=== PATIENT | female | born 1985 | race Caucasian/White ===

== ENCOUNTER 2017-02-06 09:10 | Emergency (ER) | payer MEDICAID ==
[2017-02-06] MEDS ORDERED: IBUPROFEN 600 MG TAB PO STA (09:45)
[2017-02-06] MEDS ORDERED: ACETAMINOPHEN TAB 500 MG TAB PO STA (09:46)
--- NOTE | 2017-02-06 09:49 | ED ---
General Adult HPI - General Chief complaint: Upper Respiratory Infection Stated complaint: chills Time Seen by Provider: 02/06/17 09:40 Source: patient, RN notes reviewed Mode of arrival: ambulatory Limitations: no limitations - History of Present Illness Initial comments: 31-year-old female presents to the emergency department with a chief complaint of cough cold runny nose like symptoms. Patient has been having a cough cold runny nose for the past few days. Patient does admit to fevers. Patient states that she just feels sore and achy. Patient denies any nausea or vomiting with this. She was exposed to influenza. Patient states she was concerned due to the symptoms that she thought that they should be seen. Patient denies any recent shortness of breath, chest pain, back pain, abdominal pain, nausea vomiting, numbness or tingling, dysuria or hematuria, constipation or diarrhea, headaches or visual changes, or any other current symptoms. - Related Data Previous Rx's Medication Instructions Recorded Oseltamivir [Tamiflu] 75 mg PO Q12HR #10 cap 02/06/17 Allergies Allergy/AdvReac Type Severity Reaction Status Date / Time No Known Allergies Allergy Verified 02/06/17 09:19 Review of Systems ROS Statement: Those systems with pertinent positive or pertinent negative responses have been documented in the HPI. ROS Other: All systems not noted in ROS Statement are negative. Past Medical History Past Medical History: No Reported History History of Any Multi-Drug Resistant Organisms: None Reported Past Surgical History: Tonsillectomy Past Psychological History: ADD/ADHD Smoking Status: Never smoker Past Alcohol Use History: Occasional Past Drug Use History: None Reported General Exam - General Exam Comments Initial Comments: General exam: Alert, active, comfortable in no apparent distress Head: Normocephalic Eyes: Normal reaction of pupils, equal size, normal range of extraocular motion Ears: normal external ear canals, pink tympanic membranes with normal cone of light on the right, patient does have mild erythema to the left tympanic membrane Nose: clear with pink turbinates Throat: no erythema or exudates with normal sized tonsils Neck: no masses, no nuchal rigidity Chest: no chest wall deformity Lungs: equal air entry with no crackles or wheeze CVS: S1 and S2 normal with no audible mumurs, regular rhythm Abdomen: no hepatosplenomegaly, normal bowel sounds, no guarding or rigidity Spine: no scoliosis or deformity Skin: no rashes Neurological: No focal deficits, tone is normal in all 4 extremities Limitations: no limitations Course Vital Signs 02/06/17 09:17 Temperature 99.1 F Pulse Rate 84 Respiratory 20 Rate Blood Pressure 100/63 O2 Sat by Pulse 98 Oximetry Medical Decision Making - Medical Decision Making 31-year-old female presents to the emergency department with a chief complaint of cough and fever. At this time patient informed to come back positive. At this time we discussed that we will start the patient on Tamiflu. We discussed temporizing follow-up. We discussed all the patient's questions. We discussed the medication. Patient stated that she understood all questions answered. She will be discharged home. - Lab Data Lab Results 02/06/17 Range/Units 10:08 Influenza Type A RNA Detected H (Not Detectd) Influenza Type B (PCR) Not Detected (Not Detectd) - Radiology Data Radiology results: report reviewed, image reviewed Disposition Clinical Impression: Influenza A Disposition: HOME SELF-CARE Condition: Stable Instructions: Influenza (ED) Additional Instructions: Please use medication as discussed. Please follow up with family doctor if symptoms have not improved over the next two days. Please return to the emergency room if your symptoms increase or worsen or for any other concerns. Prescriptions: Oseltamivir [Tamiflu] 75 mg PO Q12HR #10 cap Referrals: Maurilio Dickerson MD [Primary Care Provider] - 1-2 days Time of Disposition: 11:04
--- NOTE | 2017-02-06 10:17 | XR ---
EXAMINATION TYPE: XR chest 2V DATE OF EXAM: 02/06/2017 10:13 AM COMPARISON: None HISTORY: 31-year-old female with cough and congestion for 3 days TECHNIQUE: PA and lateral views FINDINGS: The cardiomediastinal silhouette, aorta, and pulmonary vasculature are within normal limits. Lungs an d pleural spaces are clear. IMPRESSION: No acute cardiopulmonary process.
[2017-02-06 11:33] VITALS: BP 107/53; PULSE 87; RESP 16; TEMP 99.4
== END 2017-02-06 11:47 | disposition home or self-care (01) ==
LOC: EC 09:10
DX: J10.1 Influenza due to other identified influenza virus with other respiratory manifestations (principal); Z90.89 Acquired absence of other organs
CPT/HCPCS: 71020; 87502; 99283

== ENCOUNTER → 2017-06-09 | Outpatient (CLI) | payer MEDICAID ==
[2017-06-09 18:46] LABS: Basophils # (A) 0.1 k/uL (0-0.2); Basophils % (A) 1 %; CH 30.4; CHCM 32.9; Eosinophils # (A) 0.1 k/uL (0-0.7); Eosinophils % (A) 2 %; HCT 46.7 % (34.0-46.0); HDW 2.37; HGB 15.1 gm/dL (11.4-16.0); Luc # (Auto) 0.15; Luc % (Auto) 2; Lymphocytes # (A) 3.2 k/uL (1.0-4.8); Lymphocytes % (A) 40 %; MCHC 32.4 g/dL (31.0-37.0); MCV 92.6 fL (80.0-100.0); Mean Platelet Volume 8.2; Monocytes # (A) 0.4 k/uL (0-1.0); Monocytes % (A) 5 %; Neutrophils % (A) 50 %; RBC 5.04 m/uL (3.80-5.40); WBC 7.9 k/uL (3.8-10.6); WBC (Perox) 7.86
[2017-06-09 18:59] LABS: ALT 26 U/L (9-52); AST 24 U/L (14-36); Alkaline Phosphatase 57 U/L (38-126); Anion Gap 11 mmol/L; Blood Urea Nitrogen 14 mg/dL (7-17); Calcium 10.1 mg/dL (8.4-10.2); Carbon Dioxide 25 mmol/L (22-30); Chloride 104 mmol/L (98-107); Cholesterol 236 mg/dL (<200); Glucose 76 mg/dL (74-99); HDL Cholesterol 98 mg/dL (40-60); Magnesium 1.8 mg/dL (1.6-2.3); Non-African American GFR(MDRD) >60 (>60 ml/min/1.73 sqM); Potassium 4.5 mmol/L (3.5-5.1); Sodium 140 mmol/L (137-145); Total Bilirubin 0.9 mg/dL (0.2-1.3); Total Protein 7.3 g/dL (6.3-8.2)
== END ==
LOC: MMGSC 07:55
PROVIDERS: ATTEND Family Medicine
DX: E55.9 Vitamin D deficiency, unspecified (principal); E78.2 Mixed hyperlipidemia; F41.1 Generalized anxiety disorder; R53.83 Other fatigue
CPT/HCPCS: 36415; 80053; 80061; 82306; 83735; 84439; 84443; 85025

== ENCOUNTER → 2019-04-13 | Outpatient (CLI) | payer MEDICAID ==
--- NOTE | 2019-04-15 21:36 | US ---
EXAMINATION TYPE: Transabdominal DATE OF EXAM: 04/13/2019 3:54 PM COMPARISON: NONE CLINICAL HISTORY: Z36 confirm dates, EXAM PERFORMED: Transabdominal (TA) EXAM MEASUREMENTS: GESTATIONAL AGE / DATING Physician Established: (12 weeks/2 days) EDC: 10/24/2019 Dates by LMP: (12 weeks/2 days) EDC: 10/24/2019 Dates by First Scan: No previous/ this is first scan Dates by Current Scan for: (12 weeks/0 days) EDC: 10/26/2019 MATERNAL ANATOMY Uterus: 12.5 x 9.9 x 6.7cm Right Ovary: 2.8 x 1.8 x 1.7cm Left Ovary: 2.7 x 2.6 x 1.5cm Post CDS / Adnexa: wnl Presence of free fluid: no Presence of corpus luteal cyst: in right ovary = 1.6 x 1.4 x 1.5cm Presence of subchorionic bleed: no GESTATION / SURVEY CRL: 5.5cm (12 weeks/0 days) Yolk Sac (normal less than 6mm): 5.3mm Heart Rate: 153 bpm Rhythm: Normal IUP: single Nuchal Translucency 10-14wks (normal less than 3mm): 0.7mm Date of LMP: 01/17/2019 Beta HcG (if available): NA Single, live IUP,12 weeks/0 days, EDC: 10/26/2019, [id number] Single live intrauterine gestation is confirmed as gestational sac, yolk sac, and pole are iden tified. No free fluid in pelvic cul-de-sac. Both ovaries are seen. Within the right ovary there is a rim hypervascular 1.4 cm hypoechoic lesion c onsistent with corpus luteal cyst. No suspicious extraovarian adnexal masses are present. IMPRESSION: Single live intrauterine gestation is confirmed, mean crown-rump length is 5.5 cm corresponding to a 12 week 0 day old fetus.
== END | disposition home or self-care (01) ==
LOC: RADUSWWP 15:31
PROVIDERS: ATTEND Obstetrics & Gynecology
DX: Z36.9 Encounter for antenatal screening, unspecified (principal); Z3A.12 12 weeks gestation of pregnancy
CPT/HCPCS: 76801; 76813

== ENCOUNTER → 2019-04-19 | Outpatient (CLI) | payer MEDICAID ==
[2019-04-19 12:10] LABS: HCT 40.2 % (34.0-46.0); HGB 13.5 gm/dL (11.4-16.0); MCH 29.3 pg (25.0-35.0); MCHC 33.7 g/dL (31.0-37.0); MCV 87.2 fL (80.0-100.0); Platelet Count 312 k/uL (150-450); RBC 4.61 m/uL (3.80-5.40); RDW 13.9 % (11.5-15.5); WBC 11.4 k/uL (3.8-10.6)
[2019-04-19 18:33] LABS: African American GFR (CKD) 148.4 (60.0-200.0)
== END | disposition home or self-care (01) ==
LOC: LABWHC1 11:27
PROVIDERS: ATTEND Obstetrics & Gynecology
DX: Z34.01 Encounter for supervision of normal first pregnancy, first trimester (principal)
CPT/HCPCS: 36415; 82565; 82947; 85027; 86762; 86780; 86850; 86900; 86901; 87340

== ENCOUNTER → 2019-05-30 | Outpatient (CLI) | payer MEDICAID ==
--- NOTE | 2019-05-31 07:32 | US ---
EXAMINATION TYPE: US OB anatomy transabd DATE OF EXAM: 05/30/2019 COMPARISON: NONE HISTORY: Large for dates 2nd trimester O36.62X0 anatomy. TECHNIQUE: Transabdominal (TA) EXAM MEASUREMENTS: GESTATIONAL AGE / DATING Physician Established: (18 weeks/6 days) EDC: 10/24/2019 Dates by LMP: (18 weeks/6 days) EDC: 10/24/2019 Dates by First Scan: (12 weeks/0 days) EDC: 10/26/2019 Dates by Current Scan for: (19 weeks/4 days) 10/20/2019 EDC: SURVEY IUP: Single PLACENTA: Anterior PREVIA: Low Lying with the placenta terminating approximately 1.8 cm from the internal cervical os. NOEL: 15.30 cm Normal CERVICAL LENGTH (transabdominal: norm > 3.0cm): 4.1 cm BIOMETRY PRESENTATION: Variable LIE: Longitudinal BPD: 4.5 cm 19 weeks / 5 days HC: 16.6 cm 19 weeks / 3 days AC: 13.9 cm 19 weeks / 3 days FL: 2.6 cm 18 weeks / 0 days ESTIMATED WEIGHT IN GRAMS: 252 grams ESTIMATED WEIGHT IN LBS/OZ: 0 lbs. 9 oz. WEIGHT PERCENTAGE BASED ON ESTABLISHED DATE: 28 % HC/AC: 1.16cm Normal FL/AC: 19% Normal HEART RATE: 143 bpm RHYTHM: Normal ANATOMY SEEN (within normal limits): * Lateral Vent (< 1 cm) .7 cm * Cisterna Magna (< 1.1 cm) 0.4 cm * Nuchal Fold (< 0.6 cm) .4 cm * Cerebellum (varies with age) 1.9 cm Choroid Plexus (bilateral) Midline Falx Cavus Septi Pellucidi Four Chamber Heart Outflow tracts: LVOT/RVOT Stomach Situs Nose / Lips Diaphragm Kidneys (bilateral) Bladder Cord Insert Three Vessel Cord Longitudinal Spine Transverse Spine Arms (bilateral) Legs (bilateral) ANATOMY SEEN (does not appear within normal limits): ANATOMY NOT SEEN: Spine down limited images seen T-spine and C-spine. IMPRESSION: 1. Single live intrauterine with a sonographic age of 19 weeks and 4 days and estimated abdullahi e of delivery of 10/20/2019, overall concordant with menstrual age. Currently the placenta is low-lyi ng. Surveillance is recommended to ensure elevation of the placenta. 2. Somewhat limited images of the spine. 3. Weight percentage based on established dates of 28% in this large for dates gestation.
== END ==
LOC: RADUSWWP 14:48
PROVIDERS: ATTEND Obstetrics & Gynecology
DX: O36.62X0 Maternal care for excessive fetal growth, second trimester, not applicable or unspecified (principal); Z3A.19 19 weeks gestation of pregnancy
CPT/HCPCS: 76811

== ENCOUNTER → 2019-06-11 | Outpatient (CLI) | payer MEDICAID ==
--- NOTE | 2019-06-12 08:42 | US ---
EXAMINATION TYPE: US OB Call Back DATE OF EXAM: 06/11/2019 COMPARISON: NONE CLINICAL HISTORY: Large for dates 2nd trimester O36.62X0. GESTATIONAL AGE / DATING Dates by Initial Survey Scan: (19 weeks/4 days) EDC: 10/20/2019 HEART RATE: 135 bpm RHYTHM: Normal ANATOMY SEEN (second anatomic survey look): Longitudinal Spine: wnl Transverse Spine: wnl IMPRESSION: Single live intrauterine embryo density has a current sonographic age of 19 weeks and 4 days and wilder mated date of delivery of 10/20/2019 with heart rate of 135 bpm. The patient was brought back for bet ter visualization of the spine, which appears overall unremarkable.
== END | disposition home or self-care (01) ==
LOC: RADUSWWP 16:08
PROVIDERS: ATTEND Obstetrics & Gynecology
DX: Z53.9 Procedure and treatment not carried out, unspecified reason (principal)

== ENCOUNTER → 2019-07-14 | Outpatient (CLI) | payer MEDICAID ==
[2019-07-14 11:51] LABS: HGB 12.2 gm/dL (11.4-16.0); MCH 30.3 pg (25.0-35.0); MCV 91.7 fL (80.0-100.0); Mean Platelet Volume 7.2; Platelet Count 271 k/uL (150-450); RBC 4.04 m/uL (3.80-5.40); RDW 13.9 % (11.5-15.5)
== END | disposition home or self-care (01) ==
LOC: LABWHC1 09:54
PROVIDERS: ATTEND Obstetrics & Gynecology
DX: Z34.02 Encounter for supervision of normal first pregnancy, second trimester (principal)
CPT/HCPCS: 36415; 82950; 85027

== ENCOUNTER → 2019-08-07 | Outpatient (CLI) | payer MEDICAID ==
--- NOTE | 2019-08-08 08:09 | US ---
EXAMINATION TYPE: US OB >= 14 wk fetus DATE OF EXAM: 08/07/2019 COMPARISON: 06/11/2019 CLINICAL HISTORY: O44.42 LOW LYING PLACENTA Hx Low lying placenta TECHNIQUE: Transabdominal (TA) GESTATIONAL AGE / DATING Physician Established: (28 weeks/6 days) EDC: 10/24/2019 Dates by Current Scan: (28 weeks/5 days) EDC: 10/25/2019 SURVEY IUP: Single PLACENTA: Anterior PREVIA: No Previa NOEL: 16.8 cm Normal CERVICAL LENGTH (transabdominal: norm > 3.0cm): 3.8 cm BIOMETRY PRESENTATION: Vertex BPD: 7.1 cm 28 weeks / 4 days HC: 27.1 cm 29 weeks / 4 days AC: 27.1 cm 28 weeks / 3 days FL: 5.2 cm 27 weeks / 6 days ESTIMATED WEIGHT IN GRAMS: 1203 grams ESTIMATED WEIGHT IN LBS/OZ: 2 lbs. 10 oz. HC/AC: 1.1 Normal FL/AC: 22% Normal HEART RATE: 142 bpm RHYTHM: Normal Single live IUP measuring 28 weeks 5 days IMPRESSION: Single live intrauterine has a sonographic age of 28 weeks and 5 days and estimated date of delivery of 10/25/2019, concordant with physician established dates. The distal tip of the placenta terminates approximately 5.0 cm from the internal cervical os.
== END | disposition home or self-care (01) ==
LOC: RADUSWWP 16:03
PROVIDERS: ATTEND Obstetrics & Gynecology
DX: O44.42 Low lying placenta NOS or without hemorrhage, second trimester (principal); Z3A.28 28 weeks gestation of pregnancy
CPT/HCPCS: 36415; 76805; 86850

== ENCOUNTER → 2019-09-21 | Outpatient (CLI) | payer MEDICAID ==
--- NOTE | 2019-09-23 14:03 | US ---
EXAMINATION TYPE: US OB >= 14 wk fetus DATE OF EXAM: 09/21/2019 COMPARISON: 08/07/2019 CLINICAL HISTORY: 34-year-old female O36.63XO Large for dates; ; assess presentation per pa tient TECHNIQUE: Transvaginal (TV) FINDINGS: GESTATIONAL AGE / DATING Physician Established: (35 weeks/2 days) EDC: 10/24/2019 Dates by LMP: (35 weeks/2 days) EDC: 10/24/2019 Dates by First Scan: (35 weeks/1 day) EDC: 10/25/2019 Dates by Current Scan: (34 weeks/3 days +/- 2 weeks 3 days) EDC: 10/30/2019 (5 days less growth than expected as compared to 08/07/2019) Beta HCG (if available): NA SURVEY IUP: Single PLACENTA: Anterior PREVIA: No Previa NOEL: 15.2 cm Normal CERVICAL LENGTH (transabdominal: norm > 3.0cm): 3.6 cm BIOMETRY PRESENTATION: Vertex LIE: Longitudinal BPD: 8.3 cm 33 weeks / 4 days HC: 31.1 cm 34 weeks / 6 days AC: 31.0 cm 35 weeks / 0 days FL: 6.6 cm 34 weeks / 0 days ESTIMATED WEIGHT IN GRAMS: 2453.0 grams ESTIMATED WEIGHT IN LBS/OZ: 5 lbs. 7 oz. WEIGHT PERCENTAGE BASED ON ESTABLISHED DATES: 27.2% HC/AC: 1.00 Normal FL/AC: 21.26 Normal HEART RATE: 129 bpm RHYTHM: Normal QUALITY ENGINEER NOTES: Single, live IUP, 34 weeks/3 days, EDC: 10/30/2019 , [id number]. IMPRESSION: 1. Single live intrauterine with estimated/established gestational age of 35 weeks 2 days b y LMP. Current ultrasound biometry is smaller but concordant (34 weeks 3 days) placing the child at t he 27th percentile for weight. 2. Note 5 days less growth than expected from 08/07/2019. Follow-up as indicated. 3. Cephalic presentation. Anterior placenta without previa. 4. Note that the anatomy was not assessed on this study.
== END | disposition home or self-care (01) ==
LOC: RADUSWWP 16:04
PROVIDERS: ATTEND Obstetrics & Gynecology
DX: O36.63X0 Maternal care for excessive fetal growth, third trimester, not applicable or unspecified (principal); Z3A.35 35 weeks gestation of pregnancy
CPT/HCPCS: 76805

== ENCOUNTER 2019-10-24 13:07 | Inpatient (IN) | payer MEDICAID ==
[2019-10-29] MEDS ORDERED: LIDOCAINE 0.5% (PF) 5 MG/ML (50 ML SDV) SQ PRN (14:01)
[2019-10-29] MEDS ORDERED: TERBUTALINE 1 MG/ML VIAL SQ PRN (14:01)
[2019-10-29] MEDS ORDERED: OXYTOCIN 10 UNIT/ML 1 ML VIAL IM PRN (14:01)
[2019-10-29] MEDS ORDERED: CARBOPROST TROMETHAMINE 250 MCG/ML 1 ML AMP IM PRN (14:01)
[2019-10-29] MEDS ORDERED: METHYLERGONOVINE 0.2 MG/ML 1 ML AMP IM PRN (14:01)
[2019-10-29] MEDS ORDERED: AMPICILLIN 2,000 MG in SODIUM CHLORIDE 0.9% 100 ML IVPB STA (14:01)
[2019-10-29] MEDS: LACTATED RINGERS 1,000 ML IV SCH ×2 (14:12→16:09)
[2019-10-29] MEDS ORDERED: OXYTOCIN 30 UNITS/500 ML NS 30 UNIT in SALINE 1 500ML.BAG IV SCH (14:15)
[2019-10-29 14:17] LABS: Basophils # (A) 0.1 k/uL (0-0.2); Basophils % (A) 0 %; Eosinophils # (A) 0.1 k/uL (0-0.7); Eosinophils % (A) 1 %; HCT 40.4 % (34.0-46.0); HGB 13.2 gm/dL (11.4-16.0); Lymphocytes # (A) 2.6 k/uL (1.0-4.8); Lymphocytes % (A) 20 %; MCH 29.3 pg (25.0-35.0); MCHC 32.6 g/dL (31.0-37.0); MCV 89.9 fL (80.0-100.0); Mean Platelet Volume 9.9; Monocytes # (A) 0.6 k/uL (0-1.0); Monocytes % (A) 4 %; Neutrophils # (A) 9.5 k/uL (1.3-7.7); Neutrophils % (A) 73 %; Platelet Count 186 k/uL (150-450); RDW 14.8 % (11.5-15.5)
[2019-10-29] MEDS ORDERED: AMPICILLIN 1,000 MG in SODIUM CHLORIDE 0.9% 50 ML IVPB SCH (18:00)
[2019-10-29] MEDS ORDERED: BUTORPHANOL 1 MG/ML 1 ML VIAL IV PRN (19:02)
--- NOTE | 2019-10-29 20:02 | P.HPOB ---
History of Present Illness H&P Date: 10/29/19 Chief Complaint: Leaking of fluid. This patient is a pleasant 34-year-old 1 para 0 female estimated date of confinement 10/24/2019 estimated gestational age 40-5/7 weeks' who presented to labor and delivery with complaints of gush of fluid at approximately 120 this a fternoon. Patient's care has been uncomplicated. Review of Systems Gastrointestinal: Reports heartburn Genitourinary: Reports Menstruation: Reports amenorrhea Past Medical History Additional Past Medical History / Comment(s): Patient has a history of irritable bowel syndrome, ADHD, anxiety, and hypercholesterolemia. History of Any Multi-Drug Resistant Organisms: None Reported Past Surgical History: Tonsillectomy Additional Past Surgical History / Comment(s): Breast biopsy Past Anesthesia/Blood Transfusion Reactions: No Reported Reaction Past Psychological History: ADD/ADHD Smoking Status: Never smoker Past Alcohol Use History: Occasional Past Drug Use History: None Reported - Past Family History Mother Family Medical History: No Reported History Medications and Allergies Home Medications Medication Instructions Recorded Confirmed Type Pedi Multivit No.25/Folic Acid 1 tab PO DAILY 10/29/19 10/29/19 History [Flintstones Multivit Chew Tab] Allergies Allergy/AdvReac Type Severity Reaction Status Date / Time No Known Allergies Allergy Verified 10/29/19 13:53 Exam Vital Signs Temp Pulse Resp BP Pulse Ox 10/29/19 14:22 98.2 F 107 H 16 136/85 99 10/29/19 14:05 98.2 F 107 H 16 136/85 99 Intake and Output 10/29/19 10/29/19 10/29/19 06:59 14:59 22:59 Other: Weight 71.214 kg - OBG Physical Exam Abdomen: bowel sounds normal, no diffuse tenderness, no bruit present, no guarding noted, no hepatomegaly, no splenomegaly, no mass Vulva: both: normal Vagina: normal moisture, no discharge Cervix: no lesion (Cervix is 3 cm dilated and gross rupture membranes.), no discharge Uterus: enlarged (Fundal height is consistent with dates) Results blood work shows she is O-, rubella immune, RPR nonreactive, hepatitis B negative, Glucola was normal, ultrasounds have been normal, patient did receive RhoGAM on August 09. Group B strep was positive Result Diagrams: 10/29/19 13:50 Abnormal Lab Results - Last 24 Hours (Table) 10/29/19 Range/Units 13:50 WBC 13.0 H (3.8-10.6) k/uL Neutrophils # 9.5 H (1.3-7.7) k/uL Assessment and Plan Assessment: This is a pleasant 33-year-old 1 para 0 female 40-5/7 weeks' gestation with spontaneous rupture membranes in early labor. Patient is a positive group B strep culture and therefore be given IV antibiotics prophylactically. At this time we anticipate vaginal delivery. (1) Postmaturity , 40-42 weeks gestation Current Visit: Yes Status: Acute Code(s): O48.0 - POST-TERM SNOMED Code(s): 67202066765357 (2) Spontaneous rupture of amniotic membranes Current Visit: Yes Status: Acute Code(s): POP4788 - SNOMED Code(s): 319808805 (3) Group B streptococcal carriage complicating Current Visit: Yes Status: Acute Code(s): O99.820 - STREPTOCOCCUS B CARRIER STATE COMPLICATING SNOMED Code(s): 385478283966027
[2019-10-29] MEDS ORDERED: ZOLPIDEM 5 MG TAB PO PRN (21:39)
[2019-10-29] MEDS ORDERED: BENZOCAINE/MENTHOL SPRAY 1 GM/SPRAY AEROSOL TOPICAL PRN (21:39)
[2019-10-29] MEDS ORDERED: HYDROCORTISONE 2.5% RECTAL CREAM 30 GM TUBE RECTAL PRN (21:39)
[2019-10-29] MEDS ORDERED: SIMETHICONE 80 MG CHEWABLE PO PRN (21:39)
[2019-10-29] MEDS ORDERED: ACETAMINOPHEN TAB 325 MG TAB PO PRN (21:39)
[2019-10-29] MEDS ORDERED: diphenhydrAMINE 50 MG/ML 1 ML VIAL IVP PRN (21:39)
[2019-10-29] MEDS ORDERED: LANOLIN CREAM 5 GM TUBE TOPICAL PRN (21:39)
[2019-10-29] MEDS ORDERED: BISACODYL 10 MG SUPP RECTAL PRN (21:39)
[2019-10-29] MEDS ORDERED: Rhogam IMMUNE GLOBULIN 1,500 UNIT/1 ML IM ONE (21:39)
[2019-10-29] MEDS ORDERED: diphenhydrAMINE 25 MG CAP PO PRN (21:39)
[2019-10-29] MEDS ORDERED: WITCH HAZEL 1 EACH MED..PAD TOPICAL PRN (21:39)
[2019-10-29] MEDS ORDERED: OXYTOCIN 20 UNITS/1000 ML NS 1,000 ML IV SCH (21:45)
--- NOTE | 2019-10-29 21:47 | P.PROBDLV ---
Vaginal Delivery Note - . Vaginal Delivery Note: Normal spontaneous vaginal delivery viable male infant Apgars 8 and 8 delivery time is 2102 hrs. Please see dictated H&P for intimate details of this patient's admission. In brief summary is a pleasant 34-year-old 1 para 0 female 40-5/7 weeks' who presents to labor and delivery with complaints of gush of fluid earlier today. Patient is placed on antibiotics due to positive group B strep culture and does have some Pitocin augmentation of labor. Patient gets an epidural placed with some relief. I do have to give her also some Stadol. Patient does progress rather quickly and then pushes for approximately 2 hours. Patient pushes the head to the perineum posterior perineum was supported. It is evident this time due to maternal exhaustion that she will need to have an episiotomy. Midline episiotomy is then made. Then have controlled delivery of infant's head over the perineum. Mouth and nares are bulb suctioned. There is no evidence of a nuchal cord. With gentle downward traction we then have deliver the anterior and posterior shoulder and rest this infant's body. This is a vigorous viable male Apgars are 8 and 8 delivery time was 2102 hrs. After delivery of the infant the cord was allowed to stop pulsating, it is then doubly clamped and cut. The placenta is then spontaneously delivered intact. Inspection of the perineum shows a second-degree laceration was easily repaired with 3-0 Vicryl in the usual fashion. Excellent reapproximation is noted. Infant and mother stable delivery room.'s May blood loss is 200 mL. All counts are correct 3. There are no complications.
[2019-10-29] MEDS: IBUPROFEN 600 MG TAB PO PRN (21:53)
--- NOTE | 2019-10-29 22:31 | P.MSEPDOC ---
Presenting Problems - Arrival Data Date of Arrival on Unit: 10/29/19 Time of Arrival on Unit: 14:00 Mode of Transport: Ambulatory - Complaint OB-Reason for Admission/Chief Complaint: Rule Out SROM Medical History - Information : 1 Para: 0 Term: 0 : 0 Abortions: Spontaneous or Elective: 0 Number of Living Children: 0 - Gestational Age Gestational Age by ALBINA (wks/days): 40 Weeks and 5 Days Review of Systems - Review of Systems Constitutional: No problems Breast: No problems ENT: No problems Cardiovascular: No problems Respiratory: No problems Gastrointestinal: No problems Genitourinary: No problems Musculoskeletal: No problems Neurological: No problems Skin: No problems Vital Signs - Temperature Temperature: 98.5 F Temperature Source: Temporal Artery Scan - Pulse Right Sitting Brachial Pulse Rate: 86 Pulse Assessment Method: Automatic Cuff - Respirations Respiratory Rate: 16 Oxygen Delivery Method: Room Air - Blood Pressure Right Arm Sitting Blood Pressure: 113/71 Blood Pressure Mean: 85 Blood Pressure Source: Automatic Cuff Medical Screen Scoring (Pre) - Cervical Exam Dilation: 1-3 cm = 1 Effacement: More than 50% = 2 Membranes: Ruptured = 3 - Uterine Contractions Frequency: > 5 minutes apart = 1, Scheduled / = 6 Duration: > 40 seconds = 2 Intensity: Contraction palpated strong = 1 - Maternal Vital Signs Maternal Temperature: N/A Maternal Blood Pressure: N/A Signs of Preeclampsia: N/A Maternal Respirations: N/A - Maternal Trauma Maternal Trauma: N/A - Assessment - Baby A Baseline FHR: 135 Heart Rate - NICHD Category: Category I (Normal) = 0 NST: Reactive Position: N/A Station: N/A - Total Score - Baby A Total Score - Baby A: 16 - Total Score - Baby B Total Score - Baby B: 16 - Total Score - Baby C Total Score - Baby C: 16 - Level of Risk - Baby A Level of Risk - Baby A: High (10+) - Level of Risk - Baby B Level of Risk - Baby B: High (10+) - Level of Risk - Baby C Level of Risk - Baby C: High (10+) Physician Notification (Pre) - Physician Notified Physician Notified Date: 10/29/19 Physician Notified Time: 13:58 New Order Received: Yes - Notification Comment Comment: Spele c\Dr. Rogers, advsd , 40 5/, SROM at 1320, clear fluid, positive amnisure, reactive NST, GBS positive. States to admit for labor, start pitocin and ampicillian per protocol. Disposition - Disposition OB Disposition: Admit, LDRP Suite I agree with the RN Medical Screening Exam: Yes Risk & Benefit of care provided described in d/c instruction: Yes Diagnosis: ENCOUNTER FOR FULL-TERM UNCOMPLICATED DELIVERY
--- NOTE | 2019-10-30 06:47 | P.PNOBGVD ---
Subjective - Subjective Patient reports: Reports appetite normal, Reports voiding normally, Reports pain well controlled, Reports ambulating normally : doing well Objective - Latest Vital Signs Latest vital signs: Vital Signs Temp Pulse Resp BP Pulse Ox 10/30/19 04:00 98.0 F 81 16 115/72 10/29/19 23:23 98.8 F 94 16 125/69 10/29/19 22:53 88 16 105/55 10/29/19 22:31 98.5 F 86 16 113/71 10/29/19 22:23 86 16 113/71 10/29/19 22:08 85 16 113/71 10/29/19 21:53 94 16 118/69 10/29/19 21:38 88 16 114/73 10/29/19 21:23 98.5 F 92 16 118/71 10/29/19 14:22 98.2 F 107 H 16 136/85 99 10/29/19 14:05 98.2 F 107 H 16 136/85 99 Intake and Output 10/29/19 10/29/19 10/30/19 14:59 22:59 06:59 Intake Total 600 Output Total 200 Balance -200 600 Intake: Other 600 Output: Estimated Blood Loss 200 Other: # Voids 2 Weight 71.214 kg - Exam Lungs: bilateral: normal Chest: Normal S1, Normal S2 Extremities: Present: normal Abdomen: Present: normal appearance, soft Uterus: Present: normal, firm - Labs Labs: Abnormal Lab Results - Last 24 Hours (Table) 10/29/19 Range/Units 13:50 WBC 13.0 H (3.8-10.6) k/uL Neutrophils # 9.5 H (1.3-7.7) k/uL Assessment and Plan Assessment: day #1. Patient is resting without complaints. Vital signs are stable and she is afebrile. Uterus is firm nontender and she is having normal lochia. My impression this is a normal course. Plan is to continue routine care and discharge home tomorrow. (1) Postmaturity , 40-42 weeks gestation Current Visit: Yes Status: Acute Code(s): O48.0 - POST-TERM SNOMED Code(s): 31371731081220 (2) Spontaneous rupture of amniotic membranes Current Visit: Yes Status: Acute Code(s): [id number] - SNOMED Code(s): 693213839 (3) Group B streptococcal carriage complicating Current Visit: Yes Status: Acute Code(s): O99.820 - STREPTOCOCCUS B CARRIER STATE COMPLICATING SNOMED Code(s): 040925937138335
[2019-10-30] MEDS: SENNOSIDES-DOCUSATE SODIUM 1 EACH TAB PO SCH ×2 (08:02→19:57)
[2019-10-30] MEDS: IBUPROFEN 600 MG TAB PO PRN ×2 (08:02→16:05)
[2019-10-31] MEDS: IBUPROFEN 600 MG TAB PO PRN (05:24)
--- NOTE | 2019-10-31 07:34 | P.PNOBGVD ---
Subjective - Subjective Patient reports: Reports appetite normal, Reports voiding normally, Reports pain well controlled, Reports ambulating normally : doing well Objective - Latest Vital Signs Latest vital signs: Vital Signs Temp Pulse Resp BP 10/30/19 23:54 97.9 F 72 16 100/60 10/30/19 16:00 98.1 F 83 18 113/73 10/30/19 08:00 98.5 F 82 18 121/75 Intake and Output 10/30/19 10/31/19 10/31/19 22:59 06:59 14:59 Other: # Voids 1 - Exam Lungs: bilateral: normal Chest: Normal S1, Normal S2 Extremities: Present: normal Abdomen: Present: normal appearance, soft Uterus: Present: normal, firm Assessment and Plan Assessment: day #2. Patient is resting without complaints and wishes to go home. Patient's vital signs are stable she's afebrile. Uterus is firm nontender she's having normal lochia. Plan is to continue routine care discharge home later today (1) Postmaturity , 40-42 weeks gestation Current Visit: Yes Status: Acute Code(s): O48.0 - POST-TERM SNOMED Code(s): 42298585973867 (2) Spontaneous rupture of amniotic membranes Current Visit: Yes Status: Acute Code(s): [id number] - SNOMED Code(s): 980645122 (3) Group B streptococcal carriage complicating Current Visit: Yes Status: Acute Code(s): O99.820 - STREPTOCOCCUS B CARRIER STATE COMPLICATING SNOMED Code(s): 169044279459281
--- NOTE | 2019-10-31 07:37 | P.DS ---
Providers Date of admission: 10/29/19 13:37 Expected date of discharge: 10/31/19 Attending physician: Joel Rogers Primary care physician: Stated None - Discharge Diagnosis(es) (1) Postmaturity , 40-42 weeks gestation Current Visit: Yes Status: Acute (2) Spontaneous rupture of amniotic membranes Current Visit: Yes Status: Acute (3) Group B streptococcal carriage complicating Current Visit: Yes Status: Acute Hospital Course: Please see dictated H&P for intimate details of this patient's admission. Brief summary this pleasant 34-year-old 1 para 0 female 40-5/7 weeks gestation admitted to labor and delivery with spontaneous rupture membranes in early labor. Patient was on have a vaginal delivery viable male . Please see dictated delivery note. day #2 patient's felt be stable for discharge home follow up with me in 6 weeks. Procedures: Normal spontaneous vaginal delivery Patient Condition at Discharge: Good Plan - Discharge Summary New Discharge Prescriptions: New Ibuprofen [Motrin] 600 mg PO Q6HR PRN #40 tab PRN Reason: Mild Pain Or Fever >= 100.5 No Action Pedi Multivit No.25/Folic Acid [Flintstones Multivit Chew Tab] 1 tab PO DAILY Discharge Medication List Pedi Multivit No.25/Folic Acid [Flintstones Multivit Chew Tab] 1 tab PO DAILY 10/29/19 [History] Ibuprofen [Motrin] 600 mg PO Q6HR PRN #40 tab 10/30/19 [Rx] Follow up Appointment(s)/Referral(s): Joel Rogers MD [STAFF PHYSICIAN] - 6 Weeks Patient Instructions/Handouts: Vaginal Delivery (DC) Activity/Diet/Wound Care/Special Instructions: No intercourse or anything per vagina for 6 weeks. Please call if any fever, chills, excessive vaginal bleeding, and/or abdominal pain Discharge Disposition: HOME SELF-CARE
[2019-10-31] MEDS: SENNOSIDES-DOCUSATE SODIUM 1 EACH TAB PO SCH (07:57)
[2019-10-31 11:04] VITALS: BP 120/71; PULSE 83; RESP 18; TEMP 97.7
== END 2019-10-31 10:30 | disposition home or self-care (01) | DRG 807 ==
LOC: 4FBP 10-29 13:37
PROVIDERS: ADMIT Obstetrics & Gynecology; ATTEND Obstetrics & Gynecology
PROC: 10E0XZZ Delivery of Products of Conception, External Approach (ICD-10-PCS; principal; 2019-10-29)
PROC: 0KQM0ZZ Repair Perineum Muscle, Open Approach (ICD-10-PCS; 2019-10-29)
PROC: 00HU33Z Insertion of Infusion Device into Spinal Canal, Percutaneous Approach (ICD-10-PCS; 2019-10-29)
PROC: 3E0R3BZ Introduction of Anesthetic Agent into Spinal Canal, Percutaneous Approach (ICD-10-PCS; 2019-10-29)
PROC: 0W8NXZZ Division of Female Perineum, External Approach (ICD-10-PCS; 2019-10-29)
DX: O48.0 Post-term pregnancy (principal); Z37.0 Single live birth; O99.344 Other mental disorders complicating childbirth; O70.1 Second degree perineal laceration during delivery; O75.81 Maternal exhaustion complicating labor and delivery; O99.284 Endocrine, nutritional and metabolic diseases complicating childbirth; E78.00 Pure hypercholesterolemia, unspecified; F90.9 Attention-deficit hyperactivity disorder, unspecified type; O99.824 Streptococcus B carrier state complicating childbirth; F41.9 Anxiety disorder, unspecified; K58.9 Irritable bowel syndrome, unspecified; O99.62 Diseases of the digestive system complicating childbirth; Z3A.40 40 weeks gestation of pregnancy
CPT/HCPCS: 85025; 85461; 86850; 86870; 86880; 86900; 86901; 86902

== ENCOUNTER → 2019-10-25 | Outpatient (CLI) | payer MEDICAID ==
--- NOTE | 2019-10-25 08:05 | US ---
EXAMINATION TYPE: US OB >= 14 wk fetus DATE OF EXAM: 10/25/2019 COMPARISON: None CLINICAL HISTORY: 048.0 Post-term Growth over due. TECHNIQUE: Transabdominal (TA) GESTATIONAL AGE / DATING Physician Established: (40 weeks/1 days) EDC: 10/24/2019 Dates by LMP: (40 weeks/1 days) EDC: 10/24/2019 Dates by First Scan: (12 weeks/0 days) EDC: 10/26/2019 Dates by Current Scan: (37 weeks/1 days) EDC: 11/14/2019 SURVEY IUP: Single PLACENTA: Anterior PREVIA: No Previa NOEL: 12.95 cm Normal CERVICAL LENGTH (transabdominal: norm > 3.0cm): 3.5 cm Limited due to shadowing BIOMETRY PRESENTATION: Vertex LIE: Longitudinal BPD: 8.76 cm 35 weeks / 3 days HC: 33.23 cm 37 weeks / 6 days AC: 33.21 cm 37 weeks / 1 days FL: 7.48 cm 38 weeks / 2 days ESTIMATED WEIGHT IN GRAMS: 3164 grams ESTIMATED WEIGHT IN LBS/OZ: 7 lbs. 1 oz. WEIGHT PERCENTAGE BASED ON ESTABLISHED DATES: 15% HC/AC: 1.00 cm Normal FL/AC: 22.51 cm Normal HEART RATE: 140 bpm RHYTHM: Normal Some measurements classified as out of range survey is limited. IMPRESSION: Limited survey without of range measurements as described. Viable intrauterine corres ponding to an ultrasound age of 37 weeks 1 day with estimated date of delivery November 14, 2019
== END | disposition home or self-care (01) ==
LOC: RADUSWWP 06:57
PROVIDERS: ATTEND Obstetrics & Gynecology
DX: O48.0 Post-term pregnancy (principal); Z3A.37 37 weeks gestation of pregnancy
CPT/HCPCS: 76805

== ENCOUNTER → 2021-02-26 | Outpatient (CLI) | payer MEDICAID ==
[2021-02-26 19:23] LABS: Basophils # (A) 0.05 X 10*3/uL (0.00-0.10); Basophils % (A) 0.6 %; Eosinophils # (A) 0.06 X 10*3/uL (0.04-0.35); Eosinophils % (A) 0.7 %; HCT 47.9 % (37.2-46.3); HGB 15.1 g/dL (12.0-15.0); Lymphocytes # (A) 2.39 X 10*3/uL (0.90-5.00); Lymphocytes % (A) 26.4 %; MCH 28.9 pg (27.0-32.0); MCHC 31.5 g/dL (32.0-37.0); MCV 91.8 fL (80.0-97.0); Mean Platelet Volume 10.9 fL (9.5-12.2); Monocytes # (A) 0.38 X 10*3/uL (0.20-1.00); Monocytes % (A) 4.2 %; Neutrophils # (A) 6.13 X 10*3/uL (1.80-7.70); Neutrophils % (A) 67.8 %; Platelet Count 311 X 10*3/uL (140-440); RBC 5.22 X 10*6/uL (4.10-5.20); RDW 13.2 % (11.5-14.5); WBC 9.04 X 10*3/uL (4.50-10.00)
[2021-02-27 01:59] LABS: T4, Free (Free Thyroxine) 1.2 ng/dL (0.80-1.80)
[2021-02-27 03:28] LABS: Albumin 5.1 g/dL (3.80-4.90); Albumin/Globulin Ratio 2.83 (1.60-3.17); Anion Gap 14.2 mmol/L (4.00-12.00); BUN/Creat Ratio 18.57 Ratio (12.00-20.00); Calcium 9.8 mg/dL (8.7-10.3); Carbon Dioxide 22.8 mmol/L (21.6-31.8); Chol/HDL Ratio 3.49; Globulin 1.8 g/dL (1.6-3.3); Potassium 4.1 mmol/L (3.5-5.5); Total Bilirubin 0.9 mg/dL (0.3-1.2); Total Protein 6.9 g/dL (6.2-8.2)
== END | disposition home or self-care (01) ==
LOC: LABWHC1 10:32
PROVIDERS: ATTEND Family Medicine
DX: Z00.00 Encounter for general adult medical examination without abnormal findings (principal); E55.9 Vitamin D deficiency, unspecified; H81.4 Vertigo of central origin; R11.0 Nausea; Z79.899 Other long term (current) drug therapy
CPT/HCPCS: 36415; 80053; 80061; 82306; 84439; 84443; 85025